=== PATIENT | female | born 1975 | race Hispanic/Latino ===

== ENCOUNTER → 2017-03-21 | Outpatient (REF) | payer OTHER, MEDICAID ==
[2017-03-21 20:05] LABS: ADD MANUAL DIFFER YES; MEAN CORPUSCULAR HEMOGLOBIN 24.8 pg (27.0-33.0); MEAN CORPUSCULAR HGB CONC 29.8 g/dl (32.0-36.5); MEAN CORPUSCULAR VOLUME 83.1 fl (80.0-96.0); PLATELET COUNT, AUTOMATED 438 k/mm3 (150-450); RED CELL DISTRIBUTION WIDTH 14.1 % (11.5-14.5); WHITE BLOOD COUNT 12.3 K/mm3 (4.0-10.0)
[2017-03-21 20:37] LABS: ALBUMIN 3.4 GM/DL (3.2-5.2); ALBUMIN/GLOBULIN RATIO 0.71 (1.00-1.93); ALKALINE PHOSPHATASE 75 U/L (45-117); ALT/SGPT 17 U/L (12-78); ANION GAP 7 MEQ/L (8-16); AST/SGOT 19 U/L (15-37); BILIRUBIN,TOTAL 0.3 MG/DL (0.2-1.0); BLOOD UREA NITROGEN 7 MG/DL (7-18); CALCIUM LEVEL 9.2 MG/DL (8.5-10.1); CARBON DIOXIDE LEVEL 28 MEQ/L (21-32); CHLORIDE LEVEL 107 MEQ/L (98-107); CREATININE FOR GFR 0.81 MG/DL (0.55-1.02); GLOMERULAR FILTRATION RATE > 60.0 (>60); GLUCOSE, FASTING 95 MG/DL (70-105); POTASSIUM SERUM 4.3 MEQ/L (3.5-5.1); SODIUM LEVEL 142 MEQ/L (136-145); TOTAL PROTEIN 8.2 GM/DL (6.4-8.2)
[2017-03-21 22:23] LABS: BANDS 1 % (< 11); EOSINOPHILS 1 % (0-5)
[2017-03-21 22:24] LABS: HYPOCHROMASIA 1+; PLATELET CLUMPS LARGE AMT; SMUDGE CELLS 1+
== END ==
LOC: M LAB REF 16:59
PROVIDERS: ATTEND Family Medicine Addiction Medicine
DX: M06.89 Other specified rheumatoid arthritis, multiple sites (principal)

== ENCOUNTER → 2017-12-27 | Outpatient (REF) | payer OTHER, MEDICAID | LOC: M LAB REF 13:55 | DX: Z12.4 Encounter for screening for malignant neoplasm of cervix (principal) | CPT/HCPCS: G0123 ==

== ENCOUNTER 2018-03-31 09:07 | Emergency (ER) | payer OTHER ==
[2018-03-31] MEDS: predniSONE 20 MG TAB PO (09:48)
[2018-03-31] MEDS: traMADol 50 MG TAB PO (09:48)
== END 2018-03-31 09:52 | disposition home or self-care (01) ==
LOC: M ED 09:07
DX: M06.9 Rheumatoid arthritis, unspecified (principal); M79.641 Pain in right hand; M79.671 Pain in right foot; R53.83 Other fatigue; Z79.899 Other long term (current) drug therapy
CPT/HCPCS: 99283

== ENCOUNTER 2018-05-01 09:14 | Emergency (ER) | payer OTHER ==
[2018-05-01 11:44] LABS: BASO % 0.4 % (0.0-1.0); EOS # 0.1 10^3/uL (0.0-0.50); EOS % 0.8 % (0.0-3.0); HEMATOCRIT 34.9 % (36.0-47.0); HEMOGLOBIN 10.2 g/dl (12.0-15.5); IMMATURE GRANULOCYTE % 0.1 % (0-3.0); LYMPH # 2.7 10^3/uL (1.5-4.5); LYMPH % 36.2 % (24.0-44.0); MEAN CORPUSCULAR HEMOGLOBIN 21.9 pg (27.0-33.0); MEAN CORPUSCULAR HGB CONC 29.2 g/dl (32.0-36.5); MEAN CORPUSCULAR VOLUME 75.1 fl (80.0-96.0); MONO # 0.6 10^3/uL (0.0-0.8); MONO % 7.8 % (0.0-5.0); NEUTROPHILS % 54.7 % (36.0-66.0); PLATELET COUNT, AUTOMATED 460 10^3/uL (150-450); RED BLOOD COUNT 4.65 10^6/uL (4.00-5.40); RED CELL DISTRIBUTION WIDTH 17.3 % (11.5-14.5); WHITE BLOOD COUNT 7.3 10^3/uL (4.0-10.0)
[2018-05-01] MEDS: [UNRECOGNIZED DRUG - OTHER] IM (11:59)
[2018-05-01] MEDS: EXPOSURE KIT-ADULT 7 DAY SUPPLY PO (11:59)
[2018-05-01] MEDS: HEPATITIS B IMMUNE GLOBULIN 5ML INJ (J1571) IM (11:59)
[2018-05-01] MEDS: ONDANSETRON 4 MG ORAL DISINTEGRATING TAB (Q0162 PER 1MG) PO (11:59)
[2018-05-01 12:09] LABS: CONTROL LINE HCG INT CTR LINE PRESENT; HCG, SERUM QUALITATIVE NEGATIVE (NEGATIVE)
[2018-05-01 12:18] LABS: ALBUMIN 3.2 GM/DL (3.2-5.2); ALBUMIN/GLOBULIN RATIO 0.64 (1.00-1.93); ALKALINE PHOSPHATASE 100 U/L (45-117); ALT/SGPT 15 U/L (12-78); ANION GAP 6 MEQ/L (8-16); AST/SGOT 21 U/L (7-37); BILIRUBIN,TOTAL 0.3 MG/DL (0.2-1.0); BLOOD UREA NITROGEN 7 MG/DL (7-18); CALCIUM LEVEL 8.4 MG/DL (8.5-10.1); CARBON DIOXIDE LEVEL 28 MEQ/L (21-32); CHLORIDE LEVEL 108 MEQ/L (98-107); CREATININE FOR GFR 0.63 MG/DL (0.55-1.30); GLOMERULAR FILTRATION RATE > 60.0 (>58); GLUCOSE, FASTING 84 MG/DL (70-100); POTASSIUM SERUM 4.1 MEQ/L (3.5-5.1); SODIUM LEVEL 142 MEQ/L (136-145); TOTAL PROTEIN 8.2 GM/DL (6.4-8.2)
[2018-05-02 09:44] LABS: HEPATITIS B SURFACE ANTIBODY POSITIVE (POSITIVE)
[2018-05-02 09:54] LABS: HEPATITIS B SURFACE ANTIGEN NEGATIVE (NEGATIVE)
[2018-05-02 10:19] LABS: HEPATITIS C VIRUS ABY INDEX 0.1 INDEX (<0.8)
[2018-05-02 10:55] LABS: HIV SCREEN CENTAUR EXPOSED NEGATIVE (NEGATIVE)
== END 2018-05-01 12:38 | disposition home or self-care (01) ==
LOC: M ED 09:14
DX: S61.031A Puncture wound without foreign body of right thumb without damage to nail, initial encounter (principal); W46.0XXA Contact with hypodermic needle, initial encounter; Y92.59 Other trade areas as the place of occurrence of the external cause
CPT/HCPCS: 90744

== ENCOUNTER → 2018-06-22 | Outpatient (CLI) | payer OTHER | LOC: M RAD 16:38 | DX: J32.0 Chronic maxillary sinusitis (principal) | CPT/HCPCS: 70486 ==

== ENCOUNTER 2019-10-12 13:15 | Emergency (ER) | payer OTHER ==
[~2019-10-12] VITALS: Ht 162.6 cm; Wt 52.3 kg
[~2019-10-12 13:15] MED LIST: AZOP0.2S; DOXY100C37; ETAN50SY SC; METH2.5T48 PO; PRED20TA PO; PRED5PAK PO; RALT40TA PO; TRAM50TA2 PO; TRAV04OPD; TRUVTAB PO; ZOFR4TAB14 PO
[2019-10-12] MEDS ORDERED: CLAR10CA3 PO (13:43)
[2019-10-12] MEDS ORDERED: FLUN25SP NARES (13:43)
[2019-10-12] MEDS ORDERED: SYMB16INH INH (13:43)
[2019-10-12 15:14] VITALS: BP 132/85
--- NOTE | 2019-10-12 15:22 | REP ---
CHEST: Two views. There is no evidence of acute infiltrate. No pleural effusion is seen. The heart is normal in size. The mediastinal silhouette is unremarkable. The visualized osseous structures are intact. IMPRESSION: No acute pulmonary disease. Electronically Signed by Constantine Esteban MD 10/12/2019 06:56 P
[2019-10-12] MEDS ORDERED: DOXY-350 PO (15:25)
== END 2019-10-12 15:32 | disposition home or self-care (01) ==
LOC: M ED 13:15
DX: J06.9 Acute upper respiratory infection, unspecified (principal); J01.00 Acute maxillary sinusitis, unspecified; J01.10 Acute frontal sinusitis, unspecified; B34.9 Viral infection, unspecified; J45.909 Unspecified asthma, uncomplicated; M06.9 Rheumatoid arthritis, unspecified; Z79.899 Other long term (current) drug therapy

== ENCOUNTER → 2020-07-31 | Outpatient (CLI) | payer OTHER ==
[~2020-07-31] MED LIST changes: +CLAR10CA3 PO; +DOXY-350 PO; +FLUN25SP NARES; +SYMB16INH INH
--- NOTE | 2020-07-31 14:48 | REP ---
INDICATION: NANCY DIAG MAMMO/LEFT BREAST LUMP. Palpable lump the size of a pea present for 2-3 weeks decreasing in size over time upper-outer quadrant left breast. COMPARISON: Mammography no comparison breast imaging. TECHNIQUE: A skin marker is affixed to the skin at the site of the palpable lump projecting in the upper outer quadrant left breast. Routine views of the left breast are augmented by magnified focal spot-compression images. True mL views were obtained. 3D tomography and targeted left breast sonography is carried out. FINDINGS: Heterogeneously dense breast parenchyma is observed mammographically. This may inhibit the sensitivity mammography. No dominant density is seen at the site of the palpable lump in the left breast on screening or diagnostic mammogram images. The craniocaudal projection image of the left breast demonstrates a 2.5 cm asymmetric density in the medial aspect of the left breast on CC view only. This tissue appears normal on MLO and true mediolateral views. This is most compatible with normal asymmetric breast parenchyma. No spiculation or architectural distortion is seen. No microcalcification or worrisome skin changes appreciated. The Volpara volumetric breast density pattern is C. Targeted sonography: Left breast is scanned in the upper outer quadrant in the area of the palpable lump and in the subareolar medial region of the left breast. Heterogeneous fibroglandular background echotexture is seen. No cyst, mass, or acoustic shadowing is observed. No suspicious sonography finding.. IMPRESSION: BIRADS/ACR category 2 benign mammographic and sonographic findings. Clinical follow-up is advised.. This patient's Tyrer-Cuzick lifetime breast cancer risk assessment score is 13.5%. This mammogram was interpreted with the aid of an FDA-approved computer-aided detection system. The patient states she had a clinical breast exam in over a year ago. The patient letter being requested is M2 dense. RECOMMENDATION: Repeat screening mammography recommended 1 year (for women over 40). <Electronically signed by Alfredo Arechiga > 07/31/20 [id number]
== END ==
LOC: M WHC 13:02
PROVIDERS: ATTEND Family Medicine Addiction Medicine
DX: N63.20 Unspecified lump in the left breast, unspecified quadrant (principal); Z12.31 Encounter for screening mammogram for malignant neoplasm of breast
CPT/HCPCS: 76642; 77066; G0279

== ENCOUNTER → 2021-07-15 | Outpatient (REF) | payer OTHER ==
[~2021-07-15] MED LIST changes: +DOXY-443; -DOXY100C37; +EMTR1TAB16 PO; -TRUVTAB PO
[2021-07-15 20:53] LABS: GC DNA AMPLIFICATION NEGATIVE (NEGATIVE)
== END ==
LOC: M SFHCWAGY 16:45
PROVIDERS: ATTEND Advanced Practice Midwife
DX: Z12.4 Encounter for screening for malignant neoplasm of cervix (principal); Z11.3 Encounter for screening for infections with a predominantly sexual mode of transmission; Z12.31 Encounter for screening mammogram for malignant neoplasm of breast

== ENCOUNTER → 2021-07-15 | Outpatient (REF) | payer OTHER | LOC: M PLALAB 14:39 | PROVIDERS: ATTEND Advanced Practice Midwife | DX: Z12.4 Encounter for screening for malignant neoplasm of cervix (principal); Z11.3 Encounter for screening for infections with a predominantly sexual mode of transmission ==

== ENCOUNTER → 2021-09-09 | Outpatient (CLI) | payer OTHER | LOC: M WHC 11:32 | PROVIDERS: ATTEND Advanced Practice Midwife | DX: Z12.31 Encounter for screening mammogram for malignant neoplasm of breast (principal) ==

== ENCOUNTER → 2022-11-10 | Outpatient (REF) | payer OTHER ==
[~2022-11-10] MED LIST changes: -DOXY-350 PO; +DOXY-444 PO
[2022-11-10 21:14] LABS: GC DNA AMPLIFICATION NEGATIVE (NEGATIVE)
== END ==
LOC: M LAB REF 16:43
PROVIDERS: ATTEND Nurse Practitioner Family
DX: L29.3 Anogenital pruritus, unspecified (principal)

== ENCOUNTER → 2023-10-12 | Outpatient (CLI) | payer OTHER | LOC: M WUC 13:44 | PROVIDERS: ATTEND Nurse Practitioner Family | DX: M54.2 Cervicalgia (principal) ==

== ENCOUNTER 2024-01-25 12:47 | Inpatient (IN) | payer OTHER ==
[~2024-01-25] VITALS: Ht 162.6 cm; Wt 59.1 kg
[2024-01-25] MEDS: FOLIC ACID 1MG TAB PO SCH (09:00)
[~2024-01-25 12:47] MED LIST changes: +DOXY-323; +DOXY-440 PO; -DOXY-443; -DOXY-444 PO
[2024-01-25 13:31] LABS: VENOUS BASE EXCESS 2.1 (-2.0-2.0); VENOUS HCO3 27.6 MMOL/L (23.0-27.0); VENOUS O2 SATURATION 59.3 % (60.0-80.0); VENOUS PARTIAL PRESSURE CO2 46.4 mmHg (38.0-50.0); VENOUS PARTIAL PRESSURE O2 30.9 mmHg (30.0-50.0); VENOUS PH 7.392 UNITS (7.330-7.430); VENOUS STANDARD HCO3 25.4 MMOL/L
[2024-01-25] MEDS: IPRATROPIUM 0.5MG/ALBUTEROL 2.5MG INH SOL UD 3ML (DUONEB) NEB ONE (13:43)
[2024-01-25 13:52] LABS: HEMATOCRIT 35.1 % (36.0-47.0); HEMOGLOBIN 11.6 g/dl (12.0-15.5); MEAN CORPUSCULAR HEMOGLOBIN 26.7 pg (27.0-33.0); MEAN CORPUSCULAR VOLUME 80.7 fl (80.0-96.0); PLATELET COUNT, AUTOMATED 492 10^3/uL (150-450); RED BLOOD COUNT 4.35 10^6/uL (4.00-5.40); WHITE BLOOD COUNT 17.1 10^3/uL (4.0-10.0)
[2024-01-25 14:19] LABS: LYMPHOCYTES 8 % (16-44); MONOCYTES 1 % (0-5); NEUTROPHILS 75 % (28-66)
[2024-01-25 14:20] LABS: HYPOCHROMASIA 2+; PLATELET ESTIMATE INCREASED (NORMAL)
[2024-01-25] MEDS: methylPREDNISolone 125MG 2ML VIAL IV ONE (14:26)
[2024-01-25] MEDS: ACETAMINOPHEN 325 MG TAB PO ONE (14:26)
[2024-01-25] MEDS: DOXYCYCLINE HYCLATE 100 MG in D5W MINI-BAG PLUS 100 ML IV ONE (14:58)
[2024-01-25] MEDS ORDERED: FOLI1TAB11 PO (15:03)
[2024-01-25] MEDS ORDERED: DORZ2SOL4 OU (15:03)
[2024-01-25] MEDS ORDERED: ERGO500029 PO (15:03)
[2024-01-25] MEDS ORDERED: HOME MED LIST COMPLETE! XX SCH (15:05)
[2024-01-25] MEDS: CEFEPIME HCL 2 GM in D5W MINI-BAG PLUS 50 ML IV ONE (15:21)
[2024-01-25] MEDS: LR 1,000 ML IV SCH (16:32)
[2024-01-25 16:41] VITALS: BP 117/80; TEMP 97.7; O2SAT 92
[2024-01-25 17:10] LABS: ALBUMIN 1.9 G/DL (3.2-5.2); ALKALINE PHOSPHATASE 338 U/L (46-116); ALT/SGPT 55 U/L (7.0-40); AST/SGOT 42 U/L (<34); BILIRUBIN,DIRECT 0.5 MG/DL (<0.4); BILIRUBIN,TOTAL 0.7 MG/DL (0.3-1.2); BLOOD UREA NITROGEN 6 MG/DL (9-23); CALCIUM LEVEL 7.6 MG/DL (8.5-10.1); CARBON DIOXIDE LEVEL 24 MMOL/L (20-31); CHLORIDE LEVEL 109 MMOL/L (98-107); CREATININE FOR GFR 0.45 MG/DL (0.55-1.30); GLOMERULAR FILTRATION RATE > 60.0 (>58); GLUCOSE, FASTING 162 MG/DL (60-100); POTASSIUM SERUM 4.2 MMOL/L (3.5-5.1); SODIUM LEVEL 140 MMOL/L (136-145)
[2024-01-25 17:17] VITALS: O2SAT 93
[2024-01-25 19:05] LABS: HEPATITIS B SURFACE ANTIGEN NEGATIVE (NEGATIVE)
[2024-01-25 19:25] LABS: HEPATITIS C VIRUS ABY INDEX 0.02 INDEX (<0.8)
[2024-01-25 19:26] LABS: HEPATITIS B CORE ANTIBODY IGM NEGATIVE (NEGATIVE)
[2024-01-25 20:22] VITALS: BP_SYST 113; BP_DIAS 17; BP_DIAS 71; TEMP 98.2; O2SAT 95
[2024-01-25] MEDS: DOXYCYCLINE HYCLATE 100MG TABLET PO SCH (21:39)
[2024-01-25] MEDS: CEFEPIME HCL 2 GM in D5W MINI-BAG PLUS 50 ML IV SCH (21:40)
[2024-01-25] MEDS: BENZONATATE 100MG CAPSULE PO PRN (21:40)
[2024-01-25] MEDS: DORZOLAMIDE 2% OPHTH SOLN 10 ML BTL OU SCH (21:40)
[2024-01-25] MEDS: IPRATROPIUM 0.5MG/ALBUTEROL 2.5MG INH SOL UD 3ML (DUONEB) NEB PRN (22:00)
[2024-01-26] VITALS (12 sets, daily range): BP systolic 112–122; BP diastolic 78–81; TEMP 97.9–98.4; O2SAT 86–98
[2024-01-26 02:34] LABS: HEMATOCRIT 28.4 % (36.0-47.0); HEMOGLOBIN 9.7 g/dl (12.0-15.5); MEAN CORPUSCULAR HGB CONC 34.2 g/dl (32.0-36.5); MEAN CORPUSCULAR VOLUME 79.1 fl (80.0-96.0); PLATELET COUNT, AUTOMATED 468 10^3/uL (150-450); RED BLOOD COUNT 3.59 10^6/uL (4.00-5.40)
[2024-01-26 03:00] LABS: ALBUMIN 1.9 G/DL (3.2-5.2); ALKALINE PHOSPHATASE 295 U/L (46-116); ALT/SGPT 46 U/L (7.0-40); AST/SGOT 32 U/L (<34); BILIRUBIN,TOTAL 0.5 MG/DL (0.3-1.2); BLOOD UREA NITROGEN 7 MG/DL (9-23); CALCIUM LEVEL 7.7 MG/DL (8.5-10.1); CARBON DIOXIDE LEVEL 25 MMOL/L (20-31); CHLORIDE LEVEL 108 MMOL/L (98-107); CREATININE FOR GFR 0.44 MG/DL (0.55-1.30); GLOMERULAR FILTRATION RATE > 60.0 (>58); GLUCOSE, FASTING 150 MG/DL (60-100); SODIUM LEVEL 139 MMOL/L (136-145); TOTAL PROTEIN 5.7 G/DL (5.7-8.2)
[2024-01-26] MEDS ORDERED: ALBUTEROL SULFATE 2.5MG/0.5ML INH NEB SOLN NEB PRN (04:10)
[2024-01-26] MEDS: methylPREDNISolone 40MG 1ML VIAL IV ONE (04:29)
[2024-01-26 05:59] LABS: MAGNESIUM LEVEL 1.9 MG/DL (1.8-2.4)
[2024-01-26 06:08] LABS: PROCALCITONIN 3.96 ng/ml
[2024-01-26 06:26] LABS: ABG BASE EXCESS 1.4 (-2.0-2.0); ABG HCO3 24.7 MMOL/L (22.0-26.0); ABG O2 SATURATION 95.3 % (95.0-99.0); ABG PARTIAL PRESSURE CO2 34.2 mmHg (35.0-45.0); ABG PARTIAL PRESSURE O2 73.2 mmHg (75.0-100.0); ABG STANDARD HCO3 25.7 MMOL/L. (22.0-26.0); ABG TOTAL CO2 25.7 MMOL/L (22.0-29.0); ABG pH (ARTERIAL) 7.476 UNITS (7.350-7.450)
[2024-01-26] MEDS ORDERED: LEVALBUTEROL 1.25MG 0.5ML CONCENTRATE NEB INH PRN (06:45)
[2024-01-26 08:05] LABS: ALKALINE PHOSPHATASE 317 U/L (46-116); ALT/SGPT 49 U/L (7.0-40); AST/SGOT 32 U/L (<34); BILIRUBIN,TOTAL 0.5 MG/DL (0.3-1.2); BLOOD UREA NITROGEN 8 MG/DL (9-23); CALCIUM LEVEL 8.1 MG/DL (8.5-10.1); CARBON DIOXIDE LEVEL 24 MMOL/L (20-31); CHLORIDE LEVEL 108 MMOL/L (98-107); CREATININE FOR GFR 0.49 MG/DL (0.55-1.30); GLOMERULAR FILTRATION RATE > 60.0 (>58); GLUCOSE, FASTING 135 MG/DL (60-100); POTASSIUM SERUM 3.7 MMOL/L (3.5-5.1); SODIUM LEVEL 140 MMOL/L (136-145); TOTAL PROTEIN 6.4 G/DL (5.7-8.2)
[2024-01-26 08:06] LABS: PROCALCITONIN 4.16 ng/ml
[2024-01-26] MEDS: ENOXAPARIN 40MG/0.4ML SYRINGE (J1650 PER 10MG) SC SCH (08:18)
[2024-01-26] MEDS ORDERED: ISOVUE-370 76% 100ML VIAL As Ordered ONE (09:38)
[2024-01-26] MEDS: NS 1,000 ML IV SCH (10:07)
[2024-01-26 10:31] LABS: BASO % 0.1 % (0.0-1.0); HEMATOCRIT 32.3 % (36.0-47.0); HEMOGLOBIN 10.8 g/dl (12.0-15.5); LYMPH # 1.8 10^3/uL (1.5-5.0); LYMPH % 8.7 % (24.0-44.0); MEAN CORPUSCULAR HEMOGLOBIN 26.8 pg (27.0-33.0); MEAN CORPUSCULAR HGB CONC 33.4 g/dl (32.0-36.5); MEAN CORPUSCULAR VOLUME 80.1 fl (80.0-96.0); MONO # 0.3 10^3/uL (0.0-0.8); MONO % 1.6 % (2.0-8.0); NEUTROPHILS # 18.1 10^3/uL (1.5-8.5); NEUTROPHILS % 87.3 % (36.0-66.0); PLATELET COUNT, AUTOMATED 555 10^3/uL (150-450); RED BLOOD COUNT 4.03 10^6/uL (4.00-5.40); WHITE BLOOD COUNT 20.7 10^3/uL (4.0-10.0)
[2024-01-26] MEDS: guaiFENesin ER TABLET 600 MG TAB PO SCH (10:57)
[2024-01-26] MEDS: HYDROCORTISONE 100MG/2ML VIAL IV ONE (13:34)
[2024-01-26] MEDS: PIPERACILLIN/TAZOBACTAM SOD 4.5 GM in D5W MINI-BAG PLUS 50 ML IV SCH (13:34)
[2024-01-26] MEDS: IPRATROPIUM 0.5MG/ALBUTEROL 2.5MG INH SOL UD 3ML (DUONEB) NEB SCH (15:23)
[2024-01-26] MEDS: VANCOMYCIN HCL 1,000 MG, VIAL MATE ADAPTER 1 EACH in D5W 250 ML IV ONE (15:33)
[2024-01-26 16:17] LABS: FREE T4 1.24 NG/DL (0.89-1.76)
[2024-01-26 16:18] LABS: THYROID STIMULATING HORMONE 0.148 uIU/ML (0.55-4.78)
[2024-01-26] MEDS: ACETAMINOPHEN TAB 650MG DOSE (2X325MG) PO PRN (18:56)
[2024-01-26] MEDS: BUDESONIDE 0.5 MG/2 ML INHALATION SUSPENSION NEB SCH (19:26)
[2024-01-27] VITALS (9 sets, daily range): BP systolic 123–178; BP diastolic 83–111; TEMP 97.9–98.6; O2SAT 92–94
[2024-01-27 06:16] LABS: HEMATOCRIT 27.9 % (36.0-47.0); HEMOGLOBIN 9.5 g/dl (12.0-15.5); MEAN CORPUSCULAR HEMOGLOBIN 26.5 pg (27.0-33.0); MEAN CORPUSCULAR HGB CONC 34.1 g/dl (32.0-36.5); MEAN CORPUSCULAR VOLUME 77.9 fl (80.0-96.0); PLATELET COUNT, AUTOMATED 526 10^3/uL (150-450); RED BLOOD COUNT 3.58 10^6/uL (4.00-5.40); WHITE BLOOD COUNT 21.1 10^3/uL (4.0-10.0)
[2024-01-27 06:46] LABS: PROCALCITONIN 2.98 ng/ml
[2024-01-27 06:48] LABS: ALBUMIN 1.8 G/DL (3.2-5.2); ALKALINE PHOSPHATASE 257 U/L (46-116); ALT/SGPT 38 U/L (7.0-40); AST/SGOT 30 U/L (<34); BILIRUBIN,TOTAL 0.3 MG/DL (0.3-1.2); BLOOD UREA NITROGEN 8 MG/DL (9-23); CALCIUM LEVEL 8.2 MG/DL (8.5-10.1); CARBON DIOXIDE LEVEL 26 MMOL/L (20-31); CHLORIDE LEVEL 110 MMOL/L (98-107); CREATININE FOR GFR 0.54 MG/DL (0.55-1.30); GLOMERULAR FILTRATION RATE > 60.0 (>58); GLUCOSE, FASTING 123 MG/DL (60-100); MAGNESIUM LEVEL 1.9 MG/DL (1.8-2.4); POTASSIUM SERUM 3.6 MMOL/L (3.5-5.1); SODIUM LEVEL 142 MMOL/L (136-145)
[2024-01-27 07:16] LABS: LYMPHOCYTES 17 % (16-44); MONOCYTES 3 % (0-5); NEUTROPHILS 75 % (28-66); PLASMA CELL 1 % (0-0); PLATELET ESTIMATE INCREASED (NORMAL)
[2024-01-27 07:18] LABS: MICROCYTOSIS 1+
[2024-01-27 07:20] LABS: HYPOCHROMASIA 1+
[2024-01-27] MEDS: ALPRAZolam 0.25 MG TAB PO PRN (09:24)
[2024-01-27] MEDS ORDERED: FUROSEMIDE 40MG/4ML VIAL IV STA (12:14)
[2024-01-27] MEDS: FUROSEMIDE 20MG/2ML VIAL IV ONE (12:41)
[2024-01-27] MEDS: LIDOCAINE 5% (LIDODERM) PATCH TD SCH (13:10)
[2024-01-27] MEDS: METOPROLOL TART 12.5 MG PER 1/2 TAB PO SCH (13:13)
[2024-01-27] MEDS: methylPREDNISolone 40MG 1ML VIAL IV SCH (14:05)
[2024-01-27] MEDS: MAG SULF 1GM/100ML (MAG RUN) 1 GM in IV 1 EA IV SCH (14:05)
[2024-01-27] MEDS: LEVALBUTEROL 1.25MG 0.5ML CONCENTRATE NEB INH SCH (15:03)
[2024-01-27] MEDS: IPRATROPIUM 0.02% SOLN 0.5MG 2.5ML NEB INH SCH (15:03)
[2024-01-27] MEDS ORDERED: methylPREDNISolone 40MG 1ML VIAL IV SCH ×2 (21:00)
[2024-01-28] VITALS (12 sets, daily range): BP systolic 128–152; BP diastolic 82–101; TEMP 96.8–98.1; O2SAT 88–97
[2024-01-28 05:55] LABS: BASO % 0.2 % (0.0-1.0); HEMOGLOBIN 9.1 g/dl (12.0-15.5); LYMPH # 2.9 10^3/uL (1.5-5.0); LYMPH % 17.7 % (24.0-44.0); MEAN CORPUSCULAR HEMOGLOBIN 26.5 pg (27.0-33.0); MEAN CORPUSCULAR HGB CONC 33.7 g/dl (32.0-36.5); MEAN CORPUSCULAR VOLUME 78.7 fl (80.0-96.0); MONO # 0.9 10^3/uL (0.0-0.8); MONO % 5.6 % (2.0-8.0); NEUTROPHILS % 73.5 % (36.0-66.0); PLATELET COUNT, AUTOMATED 470 10^3/uL (150-450); RED BLOOD COUNT 3.43 10^6/uL (4.00-5.40); WHITE BLOOD COUNT 16.4 10^3/uL (4.0-10.0)
[2024-01-28 06:21] LABS: ALBUMIN 1.6 G/DL (3.2-5.2); ALKALINE PHOSPHATASE 225 U/L (46-116); ALT/SGPT 47 U/L (7.0-40); AST/SGOT 64 U/L (<34); BILIRUBIN,TOTAL 0.4 MG/DL (0.3-1.2); BLOOD UREA NITROGEN 9 MG/DL (9-23); CALCIUM LEVEL 7.8 MG/DL (8.5-10.1); CARBON DIOXIDE LEVEL 29 MMOL/L (20-31); CHLORIDE LEVEL 108 MMOL/L (98-107); CREATININE FOR GFR 0.51 MG/DL (0.55-1.30); GLOMERULAR FILTRATION RATE > 60.0 (>58); GLUCOSE, FASTING 126 MG/DL (60-100); MAGNESIUM LEVEL 2.3 MG/DL (1.8-2.4); POTASSIUM SERUM 3.9 MMOL/L (3.5-5.1); SODIUM LEVEL 142 MMOL/L (136-145); TOTAL PROTEIN 5.7 G/DL (5.7-8.2)
[2024-01-28 09:20] LABS: ABG BASE EXCESS 0.4 (-2.0-2.0); ABG HCO3 23.9 MMOL/L (22.0-26.0); ABG O2 SATURATION 90.8 % (95.0-99.0); ABG PARTIAL PRESSURE CO2 34.5 mmHg (35.0-45.0); ABG PARTIAL PRESSURE O2 58.5 mmHg (75.0-100.0); ABG STANDARD HCO3 24.7 MMOL/L. (22.0-26.0); ABG TOTAL CO2 24.9 MMOL/L (22.0-29.0); ABG pH (ARTERIAL) 7.458 UNITS (7.350-7.450)
[2024-01-28] MEDS: LACTOBACILLUS ACIDOPHILUS CAP (BACID) PO SCH (13:15)
[2024-01-28 18:18] LABS: CRYTPOCOCCUS SOURCE Serum
[2024-01-29] VITALS (8 sets, daily range): BP systolic 130–141; BP diastolic 77–94; TEMP 97.3–98.2; O2SAT 93–98
[2024-01-29 06:47] LABS: BASO % 0.1 % (0.0-1.0); EOS % 0.1 % (0.0-3.0); HEMATOCRIT 27.4 % (36.0-47.0); HEMOGLOBIN 9.1 g/dl (12.0-15.5); LYMPH # 4.7 10^3/uL (1.5-5.0); LYMPH % 33.3 % (24.0-44.0); MEAN CORPUSCULAR HGB CONC 33.2 g/dl (32.0-36.5); MEAN CORPUSCULAR VOLUME 78.3 fl (80.0-96.0); MONO # 0.9 10^3/uL (0.0-0.8); NEUTROPHILS # 7.8 10^3/uL (1.5-8.5); PLATELET COUNT, AUTOMATED 519 10^3/uL (150-450); WHITE BLOOD COUNT 14.1 10^3/uL (4.0-10.0)
[2024-01-29 07:04] LABS: ALBUMIN 1.7 G/DL (3.2-5.2); ALKALINE PHOSPHATASE 200 U/L (46-116); ALT/SGPT 71 U/L (7.0-40); AST/SGOT 88 U/L (<34); BILIRUBIN,TOTAL 0.4 MG/DL (0.3-1.2); BLOOD UREA NITROGEN 12 MG/DL (9-23); CALCIUM LEVEL 8.1 MG/DL (8.5-10.1); CARBON DIOXIDE LEVEL 29 MMOL/L (20-31); CHLORIDE LEVEL 107 MMOL/L (98-107); CREATININE FOR GFR 0.58 MG/DL (0.55-1.30); GLOMERULAR FILTRATION RATE > 60.0 (>58); GLUCOSE, FASTING 94 MG/DL (60-100); MAGNESIUM LEVEL 2.2 MG/DL (1.8-2.4); POTASSIUM SERUM 3.5 MMOL/L (3.5-5.1); SODIUM LEVEL 140 MMOL/L (136-145); TOTAL PROTEIN 5.7 G/DL (5.7-8.2)
[2024-01-29] MEDS: LEVALBUTEROL 1.25MG 0.5ML CONCENTRATE NEB INH PRN (20:05)
[2024-01-30 03:57] VITALS: BP 125/72; TEMP 97.9; O2SAT 99
[2024-01-30 05:18] LABS: EBV PCR QUANTITATIVE Not Detected copies/mL; EBV SOURCE Whole Blood; log10 EBV DNA QN PCR Not Detected Log cps/mL
[2024-01-30 07:27] LABS: HEMATOCRIT 28.6 % (36.0-47.0); HEMOGLOBIN 9.5 g/dl (12.0-15.5); MEAN CORPUSCULAR HEMOGLOBIN 26.4 pg (27.0-33.0); MEAN CORPUSCULAR HGB CONC 33.2 g/dl (32.0-36.5); MEAN CORPUSCULAR VOLUME 79.4 fl (80.0-96.0); PLATELET COUNT, AUTOMATED 545 10^3/uL (150-450); WHITE BLOOD COUNT 12.8 10^3/uL (4.0-10.0)
[2024-01-30 07:50] LABS: LYMPHOCYTES 38 % (16-44); METAMYELOCYTES 3 % (0-0); MONOCYTES 4 % (0-5); MYELOCYTES 2 % (0-0); NEUTROPHILS 53 % (28-66)
[2024-01-30 07:52] LABS: PLATELET ESTIMATE INCREASED (NORMAL)
[2024-01-30 07:54] LABS: ALBUMIN 1.8 G/DL (3.2-5.2); ALKALINE PHOSPHATASE 180 U/L (46-116); ALT/SGPT 72 U/L (7.0-40); AST/SGOT 58 U/L (<34); BILIRUBIN,TOTAL 0.5 MG/DL (0.3-1.2); BLOOD UREA NITROGEN 9 MG/DL (9-23); CARBON DIOXIDE LEVEL 29 MMOL/L (20-31); CHLORIDE LEVEL 106 MMOL/L (98-107); CREATININE FOR GFR 0.57 MG/DL (0.55-1.30); GLOMERULAR FILTRATION RATE > 60.0 (>58); GLUCOSE, FASTING 94 MG/DL (60-100); MAGNESIUM LEVEL 1.9 MG/DL (1.8-2.4); POTASSIUM SERUM 3.7 MMOL/L (3.5-5.1); SODIUM LEVEL 141 MMOL/L (136-145); TOTAL PROTEIN 5.8 G/DL (5.7-8.2)
[2024-01-30 08:15] VITALS: BP 140/80; TEMP 97.5; O2SAT 100
[2024-01-30 09:23] VITALS: BP 140/80
[2024-01-30 11:35] VITALS: BP 146/89; TEMP 97.5; O2SAT 93
[2024-01-30] MEDS ORDERED: METO1TAB87 PO (12:39)
[2024-01-30] MEDS ORDERED: PRED20TA PO (12:39)
[2024-01-30] MEDS ORDERED: VENTAER INH (12:39)
[2024-01-30] MEDS ORDERED: PRED10TA2 PO (12:55)
[2024-01-30 13:04] VITALS: BP 128/64
[2024-01-30] MEDS ORDERED: LEVO1TAB40 PO (13:29)
[2024-01-30 17:47] LABS: MYCOPLASMA PNEUMONIAE IGG 1.33 (<=0.90)
[2024-01-30 19:37] LABS: FUNGITELL INTERPRETATION NEGATIVE (NEGATIVE); FUNGITELL, SERUM < 31 pg/mL (<60)
[2024-01-30 20:17] LABS: URINE STREP PNEUMONIAE ANTIGEN NOT DETECTED (NOT DETECT)
[2024-01-31 12:42] LABS: QuantiFERON-TB Gold Plus INDETERMINATE (NEGATIVE)
[2024-01-31 20:08] LABS: ASPERGILLUS GALACTOMANNAN AG 0.03 Index (0.00-0.49)
[2024-01-31 21:17] LABS: CRYPTOCOCCUS ANTIBODY SERUM <1:2 (<1:2)
[2024-02-01 17:23] LABS: BLASTOMYCES ANTIBODY LEVEL Negative (Negative)
[2024-02-01 22:06] LABS: COCCIDIODES AB IGG NEGATIVE (NEGATIVE); COCCIDIOIDES AB IGM NEGATIVE (NEGATIVE)
== END 2024-01-30 14:49 | disposition home or self-care (01) | DRG 720 ==
LOC: EDBD 12:47 → M ED 12:47 → M ED INP 15:23 → M MSPAV 16:45
PROVIDERS: ADMIT Internal Medicine; ATTEND Student in an Organized Health Care Education/Training Program
PROC: B246ZZZ Ultrasonography of Right and Left Heart (ICD-10-PCS; principal; 2024-01-26)
DX: A41.9 Sepsis, unspecified organism (principal); J96.01 Acute respiratory failure with hypoxia; J18.9 Pneumonia, unspecified organism; J45.21 Mild intermittent asthma with (acute) exacerbation; B96.20 Unspecified Escherichia coli [E. coli] as the cause of diseases classified elsewhere; H40.9 Unspecified glaucoma; M06.9 Rheumatoid arthritis, unspecified; R74.01 Elevation of levels of liver transaminase levels; E55.9 Vitamin D deficiency, unspecified; Z79.899 Other long term (current) drug therapy; Z11.52 Encounter for screening for COVID-19

== ENCOUNTER → 2024-02-14 | Outpatient (REF) | payer OTHER, MEDICAID ==
[~2024-02-14] MED LIST changes: +DORZ2SOL4 OU; +ERGO500029 PO; +FOLI1TAB11 PO; +LEVO1TAB40 PO; +METO1TAB87 PO; +PRED10TA2 PO; +VENTAER INH
[2024-02-14 14:30] LABS: ALBUMIN 3.1 G/DL (3.2-5.2); BILIRUBIN,DIRECT 0.1 MG/DL (<0.4); BILIRUBIN,TOTAL 0.5 MG/DL (0.3-1.2); CHOLESTEROL RISK RATIO 3.23 (<5); HDL CHOLESTEROL 66.5 MG/DL (>40); LDL CHOLESTEROL 132.7 MG/DL (<100); NON-HDL-C 148.5 MG/DL; TOTAL PROTEIN 6.8 G/DL (5.7-8.2)
[2024-02-14 14:32] LABS: HEMATOCRIT 36.9 % (36.0-47.0); HEMOGLOBIN 11.6 g/dl (12.0-15.5); MEAN CORPUSCULAR HEMOGLOBIN 27.4 pg (27.0-33.0); MEAN CORPUSCULAR HGB CONC 31.4 g/dl (32.0-36.5); PLATELET COUNT, AUTOMATED 452 10^3/uL (150-450); RED BLOOD COUNT 4.24 10^6/uL (4.00-5.40); WHITE BLOOD COUNT 10.4 10^3/uL (4.0-10.0)
[2024-02-14 14:34] LABS: THYROID STIMULATING HORMONE 0.638 uIU/ML (0.55-4.78)
[2024-02-14 14:47] LABS: HEMOGLOBIN A1c 5.2 % (4.0-6.0)
[2024-02-14 15:28] LABS: LYMPHOCYTES 79 % (16-44); MONOCYTES 2 % (0-5); NEUTROPHILS 19 % (28-66); PLATELET ESTIMATE INCREASED (NORMAL)
[2024-02-19 13:52] LABS: QuantiFERON-TB Gold Plus NEGATIVE (NEGATIVE)
== END ==
LOC: M LAB REF 12:23
PROVIDERS: ATTEND Nurse Practitioner Family
DX: R06.00 Dyspnea, unspecified (principal); J18.9 Pneumonia, unspecified organism; Z13.228 Encounter for screening for other metabolic disorders; Z13.6 Encounter for screening for cardiovascular disorders; R74.01 Elevation of levels of liver transaminase levels; R89.1 Abnormal level of hormones in specimens from other organs, systems and tissues

== ENCOUNTER → 2024-02-20 | Outpatient (REF) | payer OTHER, MEDICAID ==
[2024-02-20 17:44] LABS: RSV AMPLIFICATION NEGATIVE (NEGATIVE)
== END ==
LOC: M LAB REF 16:17
PROVIDERS: ATTEND Nurse Practitioner Family
DX: J02.9 Acute pharyngitis, unspecified (principal)

== ENCOUNTER → 2024-05-10 | Outpatient (CLI) | payer OTHER | LOC: M WHC 08:52 | PROVIDERS: ATTEND Nurse Practitioner Family | DX: Z12.31 Encounter for screening mammogram for malignant neoplasm of breast (principal) ==

== ENCOUNTER → 2024-06-05 | Outpatient (CLI) | payer OTHER ==
[~2024-06-05] MED LIST changes: -DOXY-323; +DOXY-441
== END ==
LOC: M PLAIMG 09:40
PROVIDERS: ATTEND Internal Medicine Critical Care Medicine
DX: J18.9 Pneumonia, unspecified organism (principal)

== ENCOUNTER → 2024-07-03 | Outpatient (CLI) | payer OTHER ==
[2024-07-03 12:41] LABS: CHOLESTEROL RISK RATIO 2.71 (<5); HDL CHOLESTEROL 71.1 MG/DL (>40); LDL CHOLESTEROL 105.5 MG/DL (<100); NON-HDL-C 121.9 MG/DL
[2024-07-03 12:55] LABS: HEMOGLOBIN A1c 5.6 % (4.0-6.0)
== END ==
LOC: M LAB 11:13
PROVIDERS: ATTEND Nurse Practitioner Family
DX: Z13.228 Encounter for screening for other metabolic disorders (principal)

== ENCOUNTER → 2024-11-04 | Outpatient (CLI) | payer OTHER ==
[2024-11-05 14:51] LABS: RUBEOLA IgG ANTIBODY > 300.00 AU/mL (>16.49)
== END ==
LOC: M LAB 14:01
PROVIDERS: ATTEND Nurse Practitioner Family
DX: Z23 Encounter for immunization (principal)

== ENCOUNTER → 2025-06-10 | Outpatient (CLI) | payer OTHER | LOC: M RAD 08:28 | PROVIDERS: ATTEND Internal Medicine Critical Care Medicine | DX: R91.8 Other nonspecific abnormal finding of lung field (principal) ==

== ENCOUNTER → 2025-07-30 | Outpatient (REF) | payer OTHER ==
[2025-07-30 17:14] LABS: ALT/SGPT 11 U/L (7.0-40); AST/SGOT 21 U/L (<34); CALCIUM LEVEL 8.9 MG/DL (8.5-10.1); CARBON DIOXIDE LEVEL 28 MMOL/L (20-31); CHLORIDE LEVEL 104 MMOL/L (98-107); CREATININE FOR GFR 0.61 MG/DL (0.55-1.30); GLOMERULAR FILTRATION RATE > 90.0 (>58); POTASSIUM SERUM 4.2 MMOL/L (3.5-5.1); SODIUM LEVEL 140 MMOL/L (136-145)
[2025-07-30 17:16] LABS: FREE T4 1.05 NG/DL (0.89-1.76)
[2025-07-30 17:17] LABS: BASO # 0.0 10^3/uL (0.0-0.2); BASO % 0.2 % (0.0-1.0); EOS # 0.1 10^3/uL (0.0-0.5); EOS % 1.0 % (0.0-3.0); LYMPH # 2.0 10^3/uL (1.5-5.0); LYMPH % 39.4 % (24.0-44.0); MONO # 0.3 10^3/uL (0.0-0.8); MONO % 6.3 % (2.0-8.0); NEUTROPHILS # 2.7 10^3/uL (1.5-8.5); NEUTROPHILS % 52.9 % (36.0-66.0); PLATELET COUNT, AUTOMATED 365 10^3/uL (150-450)
== END ==
LOC: M LAB REF 16:28
PROVIDERS: ATTEND Family Medicine Addiction Medicine
DX: N93.8 Other specified abnormal uterine and vaginal bleeding (principal)